=== PATIENT | female | born 1980 | race Caucasian/White ===

== ENCOUNTER → 2017-12-01 15:45 | Outpatient (REF) | payer OTHER, SELFPAY ==
[2017-12-01 17:51] LABS: Basophils % 0.4 % (0.1-2.0); Eosinophils # 0.2 K/mm3 (0.0-0.4); Eosinophils % 2.3 % (0.1-12.0); Hematocrit 45.2 % (37.0-47.0); Hemoglobin 14.6 g/dL (12.2-16.2); Lymphocytes # 2.2 K/mm3 (0.7-4.5); Lymphocytes % 32.6 K/mm3 (10-50); Mean Corpuscular HGB Conc 32.3 g/dL (31.8-35.4); Mean Corpuscular Volume 86.6 fl (81-99); Mean Platelet Volume 7.6 fl (7.4-10.4); Monocytes # 0.3 K/mm3 (0.1-1.0); Monocytes % 4.5 % (1.7-9.3); Neutrophils # 4.1 K/mm3 (1.8-7.8); Neutrophils % 60.2 % (37.0-80.0); Platelet Count 217 K/mm3 (142-424); Red Blood Count 5.21 M/mm3 (4.20-5.40); Red Cell Distribution Width 12.3 % (11.5-17.5); White Blood Count 6.8 K/mm3 (4.8-10.8)
[2017-12-01 18:13] LABS: Alanine Aminotransferase 57 U/L (12-78); Albumin Level 3.8 gm/dL (3.4-5.0); Alkaline Phosphatase 80 U/L (46-116); Anion Gap 12.1 mEq/L (5-15); Aspartate Amino Transferase 33 U/L (15-37); Bilirubin,Total 0.3 mg/dL (0.2-1.0); Blood Urea Nitrogen 7 mg/dL (7-18); Calcium 9.3 mg/dL (8.5-10.1); Carbon Dioxide 31 mmol/L (21.0-32.0); Chloride 103 mmol/L (98-107); Chol/HDL Ratio 6.7 (1-3.5); Cholesterol 148 mg/dL (140-200); Creatinine,Serum 0.87 mg/dL (0.55-1.02); Estimated Glomerular Filt Rate 73 ml/min (>60); GFR (African American) 89 ML/MIN (>60); Globulin 3.8 gm/dl (1.3-3.2); HDL Cholesterol 22 mg/dL (29-89); LDL Cholesterol 62 mg/dL (0-130); Potassium 4.1 mmoL/L (3.5-5.1); Sodium 142 mmol/L (136-145); Thyroid Stimulating Hormone 12.75 uIU/ml (0.358-3.740); Total Protein,Serum 7.6 gm/dL (6.4-8.2); Triglycerides 318 mg/dL (30-200); VLDL Cholesterol 64 mg/dL (0-40)
[2017-12-01 18:19] LABS: Glucose 92 mg/dL (74-106)
[2017-12-03 10:59] LABS: Vitamin D 25 Hydroxy 32.3 ng/mL (30.0-100.0)
== END ==
LOC: LAB 15:45
PROVIDERS: Visit Provider Nurse Practitioner Family
DX: R53.83 Other fatigue (principal); E07.9 Disorder of thyroid, unspecified; G56.01 Carpal tunnel syndrome, right upper limb
CPT/HCPCS: 80053; 80061; 82652; 84436; 84443; 85025

== ENCOUNTER 2019-10-31 16:43 | Emergency (ER) | payer BC, SELFPAY ==
[2019-10-31 17:02] VITALS: BP 109/75; PULSE 70; RESP 20; TEMP 36.7; O2SAT 98; BMI 18.8
[2019-10-31 17:14] LABS: UTC Strep Screen (Rapid) Negative (Negative)
--- NOTE | 2019-10-31 17:26 | HMH.EDUTC ---
[facility] [place]ression: Bronchitis Disposition: Home, Self-Care Condition on Discharge: Good Instructions: DI for Acute Bronchitis, Preventing the Spread of Coronavirus Discharge Instructions Additional Instructions: Drink plenty of fluids. Take tylenol or ibuprofen for pain or fever. Take the medications as directed. Follow up with your regular doctor. GO TO THE ER FOR ANY WORSENING SYMPTOMS FOLLOW THE DIRECTIONS ON THE COVID-19 HAND OUT THAT WE GAVE YOU REGARDING SELF-ISOLATION UNTIL YOU KNOW YOUR COVID-19 RESULTS Prescriptions: methylPREDNISolone [Medrol] 4 mg PO DIRECTED 6 Days #21 tab.ds.pk Transmission Status: Sent to [facility] Benzonatate [Tessalon Perle 100mg Cap] 100 mg PO TIDP PRN #30 cap PRN Reason: Cough Transmission Status: Sent to [facility] Azithromycin [Z-Jordan 250mg Tab*] 250 mg PO UD DOSE PK #6 tab Transmission Status: Sent to [facility] Referrals: Jordy Haddad MD [Primary Care Provider] - Forms: Work/School Release Time of Disposition: 17:29 Medical Decision Making - Medical Records Medical records reviewed: No: I reviewed the patient's medical records. - Jean Pierre Inquiry Pt receiving controlled substance: No Vital Signs: 10/31/19 17:02 Temperature 98.0 F Temperature Source Oral Pulse Rate [Right Brachial] 70 Respiratory Rate 20 Blood Pressure [Right Arm] 109/75 L Blood Pressure Mean [Right Arm] 86 Blood Pressure Source [Right Arm] Automatic Cuff Blood Pressure Position [Right Arm] Sitting 02 Sat by Pulse Oximetry 98 Oxygen Delivery Method Room Air - Lab Data Lab Results 10/31/19 17:10: Strep [facility] Negative Orders (Tests/Meds): ORDERS Category Date Time Status SARS-CoV-2, DANGELO Stat Lab 10/31/19 17:05 Received Strep Screen Confirmation Stat Micro 10/31/19 17:10 [place] [facility] [place] - General Stated complaint: Cough, needs COVID test for work Time Seen by Provider: 10/31/19 17:10 Mode of Arrival: Ambulatory Source of Information: Patient Limitations: No Limitations Description of Symptoms (Recalled from Triage Doc. by RN): PATIENT C/O PRODUCTIVE COUGH, SORE THROAT, HEADACHE, AND FEVER X 1 WEEK. STATES HER EMPLOYER IS REQUESTING A COVID TEST BEFORE SHE RETURNS TO WORK. PATIENT WORKS AT [employer] AND STATES A RESIDENT AT THE FACILITY RECENTLY TESTED POSITIVE HEENT Symptoms (Recalled from RN notes): Yes Resp Symptoms (Recalled from RN notes): Yes Skin Symptoms (Recalled from RN notes): No MS Symptoms (Recalled from RN notes): No Functional Status (Recalled from RN notes): WNL - History of Present Illness Provider Complaint: She has had a cough for the past 2 days. She believes it is related to allergies because she has been cleaning out a barn with lots of dust. But, she works at [employer] home. There has been one positive COVID-19 case there in a resident. - Related Data Previous Rx's Medication Instructions Recorded Azithromycin [Z-Jordan 250mg Tab*] 250 mg PO UD DOSE PK #6 tab 10/31/19 Benzonatate [Tessalon Perle 100mg 100 mg PO TIDP PRN #30 cap 10/31/19 Cap] methylPREDNISolone [Medrol] 4 mg PO DIRECTED 6 Days #21 10/31/19 tab.ds.pk Allergies Allergy/AdvReac Type Severity Reaction Status Date / Time latex [LATEX] Allergy Severe RASH, Verified 06/18/19 14:03 REDNESS Penicillins [PENICILLINS] Allergy Severe SWELLING, Verified 06/18/19 14:03 TROUBLE BREATHING - Worker's Comp Is this a Worker's Comp case?: No [facility] History - Hepatitis A Screen Drug use history?: No High risk sexual behaviors?: No History of sexually transmitted infection?: No Currently employed?: No Childcare worker?: No Do you have indoor plumbing?: Yes Do you have electricity?: Yes Attestation statement:: This patient has been screened for Hepatitis A risk factors. I have reviewed the patient's past medical history: Yes Medical History: Reports:: Anxiety, Asthma, Depre
[2019-10-31 17:35] VITALS: BP 109/75; PULSE 70; RESP 20; TEMP 36.7; O2SAT 98
[2019-11-02 15:21] LABS: Covid-19 Nasal PCR Sendout Lex NOT DETECTED
== END 2019-10-31 17:40 | disposition home or self-care (01) ==
PROVIDERS: Emergency Provider Nurse Practitioner Family; PCP Emergency Medicine
DX: J20.9 Acute bronchitis, unspecified (principal); Z20.828 Contact with and (suspected) exposure to other viral communicable diseases
CPT/HCPCS: 87880; 99202; U0004

== ENCOUNTER 2020-08-20 14:54 | Emergency (ER) | payer BC, SELFPAY ==
[2020-08-20 16:05] VITALS: BP 102/68; PULSE 102; RESP 19; TEMP 36.8; O2SAT 98; BMI 21.9
[2020-08-20 16:15] VITALS: BP 102/68; PULSE 102; RESP 19; TEMP 36.8; O2SAT 98
--- NOTE | 2020-08-20 16:18 | HMH.EDUTC ---
[facility] [place] Clinical Impression: Nausea and vomiting Qualifiers: Vomiting type: unspecified Vomiting Intractability: unspecified Qualified Code(s): R11.2 - Nausea with vomiting, unspecified Disposition: Home, Self-Care Condition on Discharge: Good Instructions: Nausea and Vomiting-Adult, Ondansetron Additional Instructions: Drink extra fluids with and between meals. If you have difficulty drinking, try very small amounts of water or suck on ice chips. ? Avoid fruit juices, as these do not replace minerals and can actually increase diarrhea. ? Children and adults can use sports drinks to replenish electrolytes. Younger children and infants should use products formulated for children, like oral rehydration solutions. ? Eat food in small amounts and let your stomach recover. ? Get lots of rest. You may feel tired or weak. ? No greasy or fried foods for the next 24-48 hours BRAT diet Bananas Rice Apples and Stevenson ? Make sure to drink plenty of liquids ? Return if needed ? Straight to ER if any life threatening symptoms ? Zofran as prescribed ? Follow up with family doctor in the next 48-72 hours if no improvement or any worsening of symptoms Prescriptions: Ondansetron [Zofran 4mg ODT] 4 mg PO TIDP PRN #9 tab PRN Reason: Vomiting Prescription Printed Referrals: Jordy Haddad MD [Primary Care Provider] - As needed Forms: Work/School Release Time of Disposition: 16:23 Medical Decision Making - Jean Pierre Inquiry Pt receiving controlled substance: No Jean Pierre was queried for this patient: No Vital Signs: 08/20/20 16:05 08/20/20 16:15 Temperature 98.3 F 98.3 F Temperature Source Oral Pulse Rate 102 H Pulse Rate [Left] 102 H Respiratory Rate 19 19 Blood Pressure 102/68 L Blood Pressure [Right Arm] 102/68 L Blood Pressure Mean [Right Arm] 79 Blood Pressure Source [Right Arm] Automatic Cuff Blood Pressure Position [Right Arm] Sitting 02 Sat by Pulse Oximetry 98 Oxygen Delivery Method Room Air - Lab Data Lab results reviewed: Yes: I reviewed the patient's lab results. [facility] [place] - General Stated complaint: vomiting,cough Time Seen by Provider: 08/20/20 16:18 Mode of Arrival: Ambulatory Source of Information: Patient Limitations: No Limitations HEENT Symptoms (Recalled from RN notes): No Resp Symptoms (Recalled from RN notes): No Skin Symptoms (Recalled from RN notes): No MS Symptoms (Recalled from RN notes): No Functional Status (Recalled from RN notes): wnl - History of Present Illness Provider Complaint: Patient states that she has had cough on and off for week and saw PCP for it last week State that she woke up in the middle of the night having nausea and vomiting State that several people at her work has had a stomach bug State that she was up most of the night vomiting and still had some vomiting this morning so she didnt go to work States that last episode of vomiting was about 4 hours ago but still having some nausea States that son also had strep throat last week and wants to get checked for it - Related Data Previous Rx's Medication Instructions Recorded Azithromycin [Z-Jordan 250mg Tab*] 250 mg PO UD DOSE PK #6 tab 10/31/19 Benzonatate [Tessalon Perle 100mg 100 mg PO TIDP PRN #30 cap 10/31/19 Cap] methylPREDNISolone [Medrol] 4 mg PO DIRECTED 6 Days #21 10/31/19 tab.ds.pk Ondansetron [Zofran 4mg ODT] 4 mg PO TIDP PRN #9 tab 08/20/20 Allergies Allergy/AdvReac Type Severity Reaction Status Date / Time latex [LATEX] Allergy Severe RASH, Verified 08/20/20 16:14 REDNESS Penicillins [PENICILLINS] Allergy Severe SWELLING, Verified 08/20/20 16:14 TROUBLE BREATHING - Worker's Comp Is this a Worker's Comp case?: No [facility] History - Hepatitis A Screen Drug use history?: No High risk sexual behaviors?: No History of sexually transmitted infection?: No Currently employed?: No Childcare worker?: No Do you have indoor plumbing?: Yes Do you have el
[2020-08-20 22:55] LABS: UTC Strep Screen (Rapid) Negative (Negative)
== END 2020-08-20 16:33 | disposition home or self-care (01) ==
PROVIDERS: Emergency Provider Nurse Practitioner; PCP Emergency Medicine
DX: R11.2 Nausea with vomiting, unspecified (principal); F41.8 Other specified anxiety disorders; K21.9 Gastro-esophageal reflux disease without esophagitis; J45.909 Unspecified asthma, uncomplicated; Z88.0 Allergy status to penicillin
CPT/HCPCS: 87880; 99202; G0463

== ENCOUNTER → 2020-11-16 19:53 | Outpatient (CLI) | payer BC, SELFPAY | PROVIDERS: Visit Provider Nurse Practitioner Family | DX: Z20.822 Contact with and (suspected) exposure to COVID-19 (principal) | CPT/HCPCS: U0003 ==

== ENCOUNTER 2020-11-28 14:37 | Emergency (ER) | payer BC, SELFPAY ==
[2020-11-28 15:15] VITALS: BP 100/65; PULSE 84; RESP 19; TEMP 36.9; O2SAT 99; BMI 19.5
--- NOTE | 2020-11-28 16:15 | HMH.EDUTC ---
[facility] [place] Disposition Clinical Impression: Exposure to COVID-19 virus Disposition: Home, Self-Care Condition on Discharge: Good Instructions: DI for COVID-19 (Suspected or Confirmed ), Coronavirus Disease 2019, Preventing the Spread of Coronavirus Discharge Instructions Additional Instructions: *Monitor Temp, Over the counter Motrin or Tylenol as directed/as needed Tylenol every 4 hours and Motrin every 6 hours (as long as your family doctor has told you that you can take it) for fever or pain. and straight to ER if unable to lower temp less than 101.0 after medication given Follow up IMMEDIATELY for new or worsening symptoms or no Noticeable improvement over the next 48-72 hours. 911 for difficulty breathing or swallowing You were tested for today for COVID19 your test result should be back in the next 24-48 hours, you may call to the [facility] to see if your test results are back in the next 48 hours [phone] [facility] hours are 9am-9pm You was given a handout with instructions for Self Quarantine and Self isolation for while you wait on test results and what to do if they are positive If you are positive the Health Dept will be contacting you also Make sure to take your Vitamins Vit. C Vit D and Zinc if you can take them Referrals: Jordy Haddad MD [Primary Care Provider] - As needed Forms: Work/School Release Time of Disposition: 16:16 Medical Decision Making - Jean Pierre Inquiry Pt receiving controlled substance: No Jean Pierre was queried for this patient: No Vital Signs: 11/28/20 15:15 Temperature 98.4 F Temperature Source Oral Pulse Rate [Right Brachial] 84 Respiratory Rate 19 Blood Pressure [Right Arm] 100/65 L Blood Pressure Mean [Right Arm] 76 Blood Pressure Source [Right Arm] Automatic Cuff Blood Pressure Position [Right Arm] Sitting 02 Sat by Pulse Oximetry 99 Oxygen Delivery Method Room Air Orders (Tests/Meds): ORDERS Category Date Time Status Covid-19 Nasal PCR ([facility]) Routine Lab 11/28/20 15:26 Received [facility] [place] HPI - General Stated complaint: covid test exposure Time Seen by Provider: 11/28/20 16:15 Mode of Arrival: Ambulatory Source of Information: Patient Limitations: No Limitations Description of Symptoms (Recalled from Triage Doc. by RN): COVID TEST D/T EXPOSURE. 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 - Related Data Previous Rx's Medication Instructions Recorded albuterol sulfate 90 mcg/actuation 2 puff INHALATION Q6H PRN #6.7 g 11/16/20 aerosol inhaler benzonatate 200 mg capsule 200 mg PO TID PRN 7 Days #21 cap 11/16/20 ondansetron 4 mg disintegrating 4 mg PO Q6H PRN 7 Days #30 tab 11/16/20 tablet prednisone 20 mg tablet 20 mg PO BID 5 Days #10 tab 11/16/20 Allergies Allergy/AdvReac Type Severity Reaction Status Date / Time latex [LATEX] Allergy Severe RASH, Verified 11/16/20 11:44 REDNESS Penicillins [PENICILLINS] Allergy Severe SWELLING, Verified 11/16/20 11:44 TROUBLE BREATHING - Worker's Comp Is this a Worker's Comp case?: No [facility] History - Hepatitis A Screen Drug use history?: No High risk sexual behaviors?: No History of sexually transmitted infection?: No Currently employed?: No Childcare worker?: No Do you have indoor plumbing?: Yes Do you have electricity?: Yes Attestation statement:: This patient has been screened for Hepatitis A risk factors. I have reviewed the patient's past medical history: Yes Medical History: Reports:: Anxiety, Asthma, Depression, Gastroesophageal Reflux Dise
[2020-11-28 16:20] VITALS: BP 100/65; PULSE 84; RESP 19; TEMP 36.9; O2SAT 99
[2020-11-28 20:56] LABS: UTC Strep Screen (Rapid) Negative (Negative)
--- NOTE | 2020-11-29 09:35 | PC.NURSE ---
pt notified with positive results for covid-19
== END 2020-11-28 16:26 | disposition home or self-care (01) ==
PROVIDERS: Emergency Provider Nurse Practitioner; PCP Emergency Medicine
DX: U07.1 COVID-19 (principal); F41.8 Other specified anxiety disorders; K21.9 Gastro-esophageal reflux disease without esophagitis; E03.9 Hypothyroidism, unspecified; Z91.040 Latex allergy status; F17.210 Nicotine dependence, cigarettes, uncomplicated; Z88.0 Allergy status to penicillin
CPT/HCPCS: 87880; 99202; G0463; U0003

== ENCOUNTER → 2021-01-01 07:50 | Outpatient (CLI) | payer BC, SELFPAY ==
--- NOTE | 2021-01-01 07:52 | CA_ITS ---
APPROVED REPORT EXAM: Comprehensive 2D, Doppler, and color-flow Echocardiogram [employer] Chair: Lesley Bowie CRT Ht: 5 ft 6 in Wt: 120lbs BSA: 1.61 BP: 000/00 mmHg Indications: cp, gerd, chf, abn ekg 2D Dimensions LVOT 1.73 cm (M/F) 1.5-2.5 LA Volume 26.20 mL LA Volume Index 16.30 mL/m2 (M/F) 16-34 M-Mode Dimensions RVDd 1.97 cm (0.9-2.6) LA Diam 2.62 cm (1.9-4.0) LVDd 4.34 cm (3.5-5.7) Ao Diam 3.12 cm (2.0-3.7) LVDs 2.90 cm (3.5-5.7) IVSd 1.13 cm (0.6-1.1) PWd 0.70 cm (0.6-1.1) EF (Teich) 62.10% FS 33.20% EDV (Teich) 84.90 mL TAPSE 1.29 (<1.7) ESV (Teich) 32.20 mL LV Diastology E Decel Time 193.00 (160-240 msec) E/A Ratio 0.99 MED E' 11.20 (< 7 cm/sec) MED A' 7.60 cm/s E'/MED E' Ratio 4.43 (>14) LAT E' 14.50 (<10 cm/sec) LAT A' 7.90 cm/s E/LAT E' Ratio 3.42 (>14) Aortic Valve AO Peak GR. 5.70 mmHg Mitral Valve MV A Velocity 50.00 (40-130 cm/s) E/A Ratio 0.99 MV Decel. Time 193.00 (160-240 ms) Pulmonary Valve PV Peak Velocity 72.00 (50-150 cm/s) Tricuspid Valve TR P. Velocity 262.00 cm/s RAP Estimate 10.00 mmHg RVSP 37.60 mmHg Left Ventricle Left atrium is normal size, left ventricle is normal size, there is no concentric left ventricular hypertrophy, visually estimated ejection fraction 55% with no regional wall motion abnormality, diastolic parameters are within normal range. Right Ventricle Right atrium and right ventricle are normal size and contractility. Aortic Valve Aortic valve is grossly normal, there is no aortic stenosis or aortic insufficiency. Mitral Valve Mitral valve is grossly normal, there is trace mitral regurgitation. Tricuspid Valve Tricuspid valve grossly normal, there is trace tricuspid regurgitation, calculated right ventricular systolic pressure is within normal range. Pulmonic Valve Pulmonic valve is poorly visualized. Great Vessels Aortic root is normal size. Inferior vena cava is normal size with normal inspiratory collapse. Pericardium No significant pericardial effusion noted. Conclusion 1. Normal left ventricular size, preserved left ventricular systolic function, visually estimated ejection fraction 55% with no regional wall motion abnormality, diastolic parameters are within normal range. 2. Trace mitral and tricuspid regurgitation, calculated right ventricular systolic pressure within normal range. 3. No significant pericardial effusion noted. Electronically signed by : Erasto Hart MD 01/01/2021 20:31:07
--- NOTE | 2021-01-01 07:52 | CA_ITS ---
APPROVED REPORT Exam: Exercise Treadmill Technologist: Gaby Elizabeth, Ht: 5 ft 6 in Wt: 120 lbs BSA: 1.61 m2 HR: 63 bpm BP: 122/71 mmHg Medical History Medications: Albuterol,,,,, ONdansetron,,,,, Stress Test Details Test: Jerson HR Resting HR: 71 bpm Max Heart Rate (APMHR): 180.840806 bpm Max HR Achieved: 159 bpm Target HR (85% APMHR): 153.506274 bpm % of APMHR: 88.33 Recovery HR: 81 bpm BP Resting BP: 127/84 mmHg Max BP: 142/74 mmHg Recovery BP: 133.0/69.0 mmHg ECG Clinical Exercise duration: 11:24 min Highest Stage Achieved: Exercise capacity: 12.8 METs Stress ECG Conclusion Max HR 159 Test stopped due to: Knee pain Symptoms: SOA with peak exertion, knee pain. No CP. Arrhythmias/Ectopy: None ST-T Changes: <1.[address] segment changes. Test Summary REST . . . . . . . Sitting REST . . . . . . . Standing REST 06:49 0.0 0.0 71 . 127/ 84 . . Stage 1 01:00 10.0 1.7 93 . . . . Stage 1 02:00 10.0 1.7 94 . . . . Stage 1 03:00 10.0 1.7 94 . 120/ 84 . . Stage 2 01:00 12.0 2.5 106 . . . . Stage 2 02:00 12.0 2.5 108 . . . . Stage 2 03:00 12.0 2.5 109 . 124/ 88 . . Stage 3 01:00 14.0 3.4 117 . . . . Stage 3 02:00 14.0 3.4 119 . . . . Stage 3 03:00 14.0 3.4 122 . 132/ 88 . . Stage 4 01:00 16.0 4.2 137 . . . . Stage 4 02:00 16.0 4.2 149 . . . . Stage 4 02:24 16.0 4.2 155 . . . Stop exercise at 11:24 RECOVERY 01:00 0.0 0.0 115 . . . . RECOVERY 02:00 0.0 0.0 100 . . . . RECOVERY 03:00 0.0 0.0 87 . 142/ 74 . . RECOVERY 04:00 0.0 0.0 80 . 133/ 69 . . RECOVERY 04:30 0.0 0.0 96 . 133/ 69 . . Electronically signed by : Angel Davis MD 01/02/2021 17:36:52
== END ==
PROVIDERS: PCP Nurse Practitioner Family; Visit Provider Nurse Practitioner Family
DX: R07.9 Chest pain, unspecified (principal)
CPT/HCPCS: 93017; 93306

== ENCOUNTER → 2021-01-31 06:32 | Outpatient (CLI) | payer BC, SELFPAY ==
--- NOTE | 2021-01-31 06:33 | CT_ITS ---
PROCEDURE: CT ANGIO CORONARY ARTERY CLINCAL INDICATION: chest pain COMPARISON: CT CHW CT CHEST W/ CONTRAST from 12/21/2015 TECHNIQUE: IV Contrast: 80 mL Isovue 370 Gated images performed with helical technique of the coronary arteries. Axial, 3D and curved planar reformatting and spindle reformatted images were reviewed. FINDINGS: The coronary arteries have an unremarkable appearance. There are origins from the aorta are normal with no malignant course apparent. The left main, lad and diagonal branches are unremarkable. Circumflex and obtuse marginal branch has an unremarkable appearance. The RCA has an unremarkable appearance. RCA gives rise to the posterior lateral branch to the left ventricle supply to the intraventricular says some is through the LAD. The No myocardial bridging. Coronary artery calcium score is 0. There are atelectatic changes or fibrotic changes in the left lower lobe. The RV/LV ratio is greater than 1 with mild prominence of the right ventricle and reflux of contrast into prominent inferior vena cava which may be seen with right heart strain IMPRESSION: 1. Negative CTA of the coronary arteries. 2. Left-sided dominance to the interventricular septum. 3. Possible right dysfunction/strain Dictated by: Jair Dye MD 02/02/2021 14:19 Jair Dey MD in [place] 02/02/2021 14:19
[2021-01-31 06:50] VITALS: BMI 17.2
[2021-01-31 07:07] VITALS: BP 116/66; PULSE 78; RESP 18; TEMP 36.2; O2SAT 97
== END ==
PROVIDERS: PCP Family Medicine; Visit Provider Nurse Practitioner Family
DX: R06.00 Dyspnea, unspecified (principal); R07.9 Chest pain, unspecified; F17.200 Nicotine dependence, unspecified, uncomplicated; Z82.49 Family history of ischemic heart disease and other diseases of the circulatory system
CPT/HCPCS: 75574; Q9967

== ENCOUNTER → 2021-02-09 16:36 | Outpatient (CLI) | payer BC, SELFPAY ==
--- NOTE | 2021-02-09 16:40 | XR_ITS ---
PROCEDURE INFORMATION: Exam: XR Right Shoulder Exam date and time: 02/09/2021 4:40 PM Age: 40 years old Clinical indication: Injury or trauma; Blunt trauma (contusions or hematomas); Right; Injury date: 02/02/21; Injury details: Shoulder pain after falling from horse 1 week ago TECHNIQUE: Imaging protocol: XR Right shoulder. Views: 2 or more views. COMPARISON: CR CXR CHEST(2 VIEWS-NOT PORTABLE) 03/25/2016 3:05 PM FINDINGS: Bones/joints: There is no evidence of acute fracture.There is no evidence of malalignment or dislocation. Soft tissues: Normal. IMPRESSION: There is no evidence of acute fracture.There is no evidence of malalignment or dislocation.
--- NOTE | 2021-02-09 16:40 | XR_ITS ---
PROCEDURE INFORMATION: Exam: XR Thoracic Spine Exam date and time: 02/09/2021 4:40 PM Age: 40 years old Clinical indication: Injury or trauma; Blunt trauma (contusions or hematomas); Injury date: 02/02/21; Injury details: Upper back pain after fall from horse 1 week ago TECHNIQUE: Imaging protocol: XR of the thoracic spine. Views: 3 views. COMPARISON: CR TSP THORACIC SPINE-3V SWIMMERS 06/14/2014 10:33 AM FINDINGS: Bones/joints: Normal. No acute fracture. Normal alignment. Soft tissues: Unremarkable. IMPRESSION: No acute findings.
== END ==
PROVIDERS: PCP Emergency Medicine; Visit Provider Nurse Practitioner Family
DX: M25.511 Pain in right shoulder (principal); M54.9 Dorsalgia, unspecified; M54.6 Pain in thoracic spine
CPT/HCPCS: 72072; 73030

== ENCOUNTER → 2021-02-23 20:00 | Outpatient (CLI) | payer BC, SELFPAY | PROVIDERS: Visit Provider Nurse Practitioner Family | DX: Z20.822 Contact with and (suspected) exposure to COVID-19 (principal) | CPT/HCPCS: C9803; U0003; U0005 ==

== ENCOUNTER → 2021-04-13 18:18 | Outpatient (CLI) | payer BC, SELFPAY ==
[2021-04-13 18:20] LABS: Adenovirus,PCR Not Detected (NotDetected); Bordetella Pertussis Not Detected (NotDetected); Chlamydophila Pneumoniae, PCR Not Detected (NotDetected); Coronavirus 19, PCR Not Detected (NotDetected); Coronavirus 229E Not Detected (NotDetected); Coronavirus NL63 Not Detected (NotDetected); Coronavirus OC43 Not Detected (NotDetected); Coronovirus HKU1,PCR Not Detected (NotDetected); Human Metapneumovirus Not Detected (NotDetected); Influenza A, PCR Not Detected (NotDetected); Influenza AH1, 2009 Not Detected (NotDetected); Influenza AH1, PCR Not Detected (NotDetected); Influenza AH3,PCR Not Detected (NotDetected); Influenza B, PCR Not Detected (NotDetected); Mycoplasma Pneumoniae, PCR Not Detected (NotDetected); Parainfluenza 1, PCR Not Detected (NotDetected); Parainfluenza 2, PCR Not Detected (NotDetected); Parainfluenza 3, PCR Not Detected (NotDetected); Parainfluenza 4, PCR Not Detected (NotDetected); Respiratory Syncytial Virus Not Detected (NotDetected); Rhinovirus/Enterovirus Not Detected (NotDetected)
== END ==
PROVIDERS: Visit Provider Nurse Practitioner Family
DX: Z20.822 Contact with and (suspected) exposure to COVID-19 (principal)
CPT/HCPCS: 87581; 87632; 87798; C9803; U0003; U0005

== ENCOUNTER → 2021-08-22 13:32 | Outpatient (CLI) | payer BC, SELFPAY ==
--- NOTE | 2021-08-22 13:36 | XR_ITS ---
FINAL REPORT CLINICAL HISTORY: cough COMPARISON: March 25, 2016 FINDINGS: Two views of the chest were obtained. The heart size and pulmonary vascularity are within normal limits. The mediastinum is normal. No acute pulmonary abnormality is identified. There is no pneumothorax. The bony thorax is intact. IMPRESSION: No active cardiopulmonary disease. Reviewed, Interpreted and Dictated by Elver Roblero III, MD Transcribed by Nataly Rust Authenticated by Elver Roblero III, MD on 08/22/2021 02:17:18 PM [facility]
== END ==
PROVIDERS: PCP Nurse Practitioner Family; Visit Provider Nurse Practitioner Family
DX: R06.2 Wheezing (principal)
CPT/HCPCS: 71046

== ENCOUNTER → 2021-11-09 15:27 | Outpatient (CLI) | payer BC, SELFPAY ==
[2021-11-09 17:23] LABS: Basophils % 0.9 % (0.1-2.0); Eosinophils # 0.1 K/mm3 (0.0-0.4); Eosinophils % 2.1 % (0.1-12.0); Hematocrit 42.3 % (37.0-47.0); Hemoglobin 14.1 g/dL (12.2-16.2); Lymphocytes # 1.2 K/mm3 (0.7-4.5); Lymphocytes % 27.2 % (10-50); Mean Corpuscular HGB Conc 33.3 g/dL (31.8-35.4); Mean Corpuscular Hemoglobin 30.1 pg (27.0-31.2); Mean Corpuscular Volume 90.2 fl (81-99); Monocytes # 0.4 K/mm3 (0.1-1.0); Neutrophils # 2.7 K/mm3 (1.8-7.8); Neutrophils % 60.7 % (37.0-80.0); Platelet Count 199 K/mm3 (142-424); Red Blood Count 4.69 M/mm3 (4.20-5.40); Red Cell Distribution Width 13.2 % (11.5-17.5); White Blood Count 4.4 K/mm3 (4.8-10.8)
[2021-11-09 17:42] LABS: Alanine Aminotransferase 50 U/L (12-78); Albumin/Globulin Ratio 1.2 (1.1-1.8); Alkaline Phosphatase 70 U/L (38-126); Anion Gap 9.7 mEq/L (5-15); Aspartate Amino Transferase 45 U/L (14-36); Bilirubin,Total 0.3 mg/dl (0.2-1.3); Blood Urea Nitrogen 9 mg/dl (7-17); Calcium 8.8 mg/dl (8.4-10.2); Carbon Dioxide 25 mmol/L (22.0-30.0); Chloride 105 mmol/L (98-107); Chol/HDL Ratio 4.7 (1-3.5); Cholesterol 159 mg/dl (140-200); Estimated Glomerular Filt Rate 79 ml/min (>60); GFR (African American) 96 ML/MIN (>60); Globulin 3.4 g/dL (1.3-3.2); Glucose 89 mg/dl (74-100); HDL Cholesterol 34 mg/dl (40-60); Potassium 3.7 mmoL/L (3.5-5.1); Sodium 136 mmol/L (136-145); Total Protein,Serum 7.4 g/dl (6.3-8.2); Triglycerides 102 mg/dl (30-150); VLDL Cholesterol 20 mg/dL (0-40)
[2021-11-09 17:54] LABS: Direct LDL Cholesterol 94.09 mg/dL (100-129)
[2021-11-09 17:57] LABS: Free T4 (Free Thyroxine) 0.81 ng/dl (0.78-2.19)
[2021-11-17 17:08] LABS: 1,25 Dihydroxy Vitamin D 37 pg/mL (.); 1,25-Dihydroxy, Vitamin D-2 <10 pg/mL (.); 1,25-Dihydroxy, Vitamin D-3 37 pg/mL (.)
== END ==
PROVIDERS: PCP Nurse Practitioner Family; Visit Provider Nurse Practitioner Family
DX: R53.83 Other fatigue (principal)
CPT/HCPCS: 36415; 80053; 80061; 82652; 84439; 84443; 85025

== ENCOUNTER 2021-11-11 13:26 | Emergency (ER) | payer BC, SELFPAY ==
[2021-11-11 13:38] VITALS: BP 112/77; PULSE 82; RESP 16; TEMP 36.8; O2SAT 97; BMI 24.3
--- NOTE | 2021-11-11 14:05 | HMH.EDUTC ---
[facility] [place] Clinical Impression: Acute bronchitis Qualifiers: Bronchitis organism: unspecified organism Qualified Code(s): J20.9 - Acute bronchitis, unspecified Disposition: Home, Self-Care Condition on Discharge: Good Instructions: DI for Acute Bronchitis, DI for COVID-19 (Suspected or Confirmed ), Preventing the Spread of Coronavirus Discharge Instructions Additional Instructions: Drink plenty of fluids. Take tylenol or ibuprofen for pain or fever. Take the medications as directed. Follow up with your regular doctor. GO TO THE ER FOR ANY WORSENING SYMPTOMS Quarantine until you know the results of your covid-19 test. Notify your school or workplace of your results and follow their instructions regarding return to work/school. Prescriptions: Benzonatate [Benzonatate 100mg cap] 100 mg PO TIDP PRN #30 cap PRN Reason: Cough [id number] methylPREDNISolone [Medrol] 4 mg PO DIRECTED 6 Days #21 packet Transmission Status: [facility] Azithromycin [Z-Jordan 250mg Tab*] 250 mg PO UD DOSE PK #6 tab Transmission Status: [facility] Referrals: Rian Rose APRN [Primary Care Provider] - Forms: Work/School Release Time of Disposition: 14:12 Medical Decision Making - Medical Records Medical records reviewed: No: I reviewed the patient's medical records. - Jean Pierre Inquiry Pt receiving controlled substance: No Vital Signs: 11/11/21 13:38 11/11/21 14:14 Temperature 98.3 F 98.3 F Temperature Source Oral Pulse Rate 82 Pulse Rate [Left] 82 Respiratory Rate 16 16 Blood Pressure 112/77 Blood Pressure [Right Arm] 112/77 Blood Pressure Mean [Right Arm] 88 02 Sat by Pulse Oximetry 97 - Lab Data Lab Results 11/11/21 14:06: Chlamy pneumoniae PCR Not detected, Adenovirus (PCR) Not detected, B. pertussis DNA (PCR) Not detected, Coronavirus OC43 (PCR) Not detected, Coronavirus HKU1 (PCR) Not detected, Coronavirus 229E (PCR) Not detected, SARS-CoV-2 (PCR) Not detected, Coronavirus NL63 (PCR) Not detected, Human Metapneumovir PCR Not detected, Influenza A (H1) PCR Not detected, Influ A (H1N1/09) PCR Not detected, Influenza A (H3) PCR Not detected, Influenza Type A (PCR) Not detected, Influenza Type B (PCR) Not detected, M. pneumoniae (PCR) Not detected, Parainfluenza 1 (PCR) Not detected, Parainfluenza 2 (PCR) Not detected, Parainfluenza 3 (PCR) Not detected, Parainfluenza 4 (PCR) Detected A, RSV (PCR) Not detected, Entero/Rhino (PCR) Not detected [facility] [place] - General Stated complaint: sore throat, runny nose, cough, congestion Time Seen by Provider: 11/11/21 14:05 Mode of Arrival: Ambulatory Source of Information: Patient Limitations: No Limitations Description of Symptoms (Recalled from Triage Doc. by RN): patient comes in today with complaints of cough and sore throat. symptoms began yesterday HEENT Symptoms (Recalled from RN notes): Yes Resp Symptoms (Recalled from RN notes): Yes Skin Symptoms (Recalled from RN notes): No MS Symptoms (Recalled from RN notes): No Functional Status (Recalled from RN notes): n/a - History of Present Illness Provider Complaint: She states that she has had chest congestion, productive cough with yellowish sputum and she has felt bad since yesterday. - Related Data Home Medications Medication Instructions Recorded Confirmed gabapentin 600 mg tablet 600 mg PO BID 01/03/21 11/09/21 Buspirone HCl [Buspar 10mg 10 mg PO BID 01/31/21 11/09/21 tablet] Previous Rx's Medication Instructions Recorded albuterol sulfate 90 mcg/actuation 2 puff INHALATION Q6H PRN 30 Days 08/21/21 aerosol inhaler #6.7 g Azithromycin [Z-Jordan 250mg Tab*] 250 mg PO UD DOSE PK #6 tab 11/11/21 Benzonatate [Benzonatate 100mg 100 mg PO TIDP PRN #30 cap 11/11/21 cap] methylPREDNISolone [Medrol] 4 mg PO DIRECTED 6 Days #21 11/11/21 packet Allergies Allergy/AdvReac T
[2021-11-11 14:14] VITALS: BP 112/77; PULSE 82; RESP 16; TEMP 36.8
[2021-11-11 14:32] LABS: Adenovirus,PCR Not Detected (NotDetected); Bordetella Pertussis Not Detected (NotDetected); Chlamydophila Pneumoniae, PCR Not Detected (NotDetected); Coronavirus 19, PCR Not Detected (NotDetected); Coronavirus 229E Not Detected (NotDetected); Coronavirus NL63 Not Detected (NotDetected); Coronavirus OC43 Not Detected (NotDetected); Coronovirus HKU1,PCR Not Detected (NotDetected); Human Metapneumovirus Not Detected (NotDetected); Influenza A, PCR Not Detected (NotDetected); Influenza AH1, 2009 Not Detected (NotDetected); Influenza AH1, PCR Not Detected (NotDetected); Influenza AH3,PCR Not Detected (NotDetected); Influenza B, PCR Not Detected (NotDetected); Mycoplasma Pneumoniae, PCR Not Detected (NotDetected); Parainfluenza 1, PCR Not Detected (NotDetected); Parainfluenza 2, PCR Not Detected (NotDetected); Parainfluenza 3, PCR Not Detected (NotDetected); Respiratory Syncytial Virus Not Detected (NotDetected); Rhinovirus/Enterovirus Not Detected (NotDetected)
[2021-11-11 19:21] LABS: Parainfluenza 4, PCR Detected (NotDetected)
== END 2021-11-11 14:16 | disposition home or self-care (01) ==
PROVIDERS: Emergency Provider Nurse Practitioner Family; PCP Nurse Practitioner Family
DX: J20.9 Acute bronchitis, unspecified (principal)
CPT/HCPCS: 87581; 87632; 87798; 99212; C9803; G0463; U0003; U0005

== ENCOUNTER 2021-12-02 13:32 | Emergency (ER) | payer BC, SELFPAY ==
[2021-12-02 14:30] VITALS: BP 103/72; PULSE 76; RESP 19; TEMP 37; O2SAT 100; BMI 23.9
--- NOTE | 2021-12-02 14:58 | HMH.EDUTC ---
[facility] [place] Clinical Impression: Encounter for laboratory testing for COVID-19 virus Disposition: Home, Self-Care Condition on Discharge: Good Instructions: DI for COVID-19 (Suspected or Confirmed ), Preventing the Spread of Coronavirus Discharge Instructions Additional Instructions: *Monitor Temp, Over the counter Motrin or Tylenol as directed/as needed Tylenol every 4 hours and Motrin every 6 hours (as long as your family doctor has told you that you can take it) for fever or pain. and straight to ER if unable to lower temp less than 101.0 after medication given *Warm salt water gargles may help to soothe the throat *Throat Lozenges *Warm fluids like tea with honey may help to soothe the throat *Sleep elevated *Humidifier/Vaporizer Follow up IMMEDIATELY for new or worsening symptoms or no Noticeable improvement over the next 48-72 hours. 911 for difficulty breathing or swallowing You were tested for today for COVID19 your test result should be back in the next 24-48 hours, you may check your results on the [facility] My Health Portal Make sure to take your Vitamins Vit. C Vit D and Zinc if you can take them Referrals: Jordy Haddad MD [Primary Care Provider] - As needed Forms: Work/School Release Medical Decision Making - Jean Pierre Inquiry Pt receiving controlled substance: No Jean Pierre was queried for this patient: No Vital Signs: 12/02/21 14:30 Temperature 98.6 F Temperature Source Oral Pulse Rate [Right Brachial] 76 Respiratory Rate 19 Blood Pressure [Right Arm] 103/72 L Blood Pressure Mean [Right Arm] 82 Blood Pressure Source [Right Arm] Automatic Cuff Blood Pressure Position [Right Arm] Sitting 02 Sat by Pulse Oximetry 100 Oxygen Delivery Method Room Air Orders (Tests/Meds): ORDERS Category Date Time Status Covid-19 Nasal PCR ([facility]) Routine Lab 12/02/21 14:26 Received [facility] [place] HPI - General Stated complaint: covid test Time Seen by Provider: 12/02/21 14:58 Mode of Arrival: Ambulatory Source of Information: Patient Limitations: No Limitations Description of Symptoms (Recalled from Triage Doc. by RN): COVID TEST D/T EXPOSURE HEENT Symptoms (Recalled from RN notes): No Resp Symptoms (Recalled from RN notes): No Skin Symptoms (Recalled from RN notes): No MS Symptoms (Recalled from RN notes): No Functional Status (Recalled from RN notes): WNL - History of Present Illness Provider Complaint: Patient states that child had a positive home test and she has been caring for him States that she isnt having any symptoms but wanted to get tested for COVID due to exposure - Related Data Home Medications Medication Instructions Recorded Confirmed gabapentin 600 mg tablet 600 mg PO BID 01/03/21 11/09/21 Buspirone HCl [Buspar 10mg 10 mg PO BID 01/31/21 11/09/21 tablet] Previous Rx's Medication Instructions Recorded albuterol sulfate 90 mcg/actuation 2 puff INHALATION Q6H PRN 30 Days 08/21/21 aerosol inhaler #6.7 g Azithromycin [Z-Jordan 250mg Tab*] 250 mg PO UD DOSE PK #6 tab 11/11/21 Benzonatate [Benzonatate 100mg 100 mg PO TIDP PRN #30 cap 11/11/21 cap] methylPREDNISolone [Medrol] 4 mg PO DIRECTED 6 Days #21 11/11/21 packet levothyroxine 75 mcg capsule 75 mcg PO DAILY #30 cap 11/19/21 Allergies Allergy/AdvReac Type Severity Reaction Status Date / Time latex [LATEX] Allergy Severe RASH, Verified 11/11/21 13:57 REDNESS Penicillins [PENICILLINS] Allergy Severe SWELLING, Verified 11/11/21 13:57 TROUBLE BREATHING - Worker's Comp Is this a Worker's Comp case?: No [facility] History - Hepatitis A Screen Attestation statement:: This patient has been screened for Hepatitis A risk factors. I have reviewed the patient's past medical history: Yes Medical History: Reports:: Anxiety, Asthma, Cancer, Depression, Gastroesophageal Reflux Disease(GERD), Valvular Heart Disease Denies:: Diabetes Mellitus Type 1, Diabetes Mellitus Type 2, MRSA, Seizures Other
[2021-12-02 15:00] VITALS: BP 103/72; PULSE 76; RESP 19; TEMP 37; O2SAT 100
== END 2021-12-02 15:05 | disposition home or self-care (01) ==
PROVIDERS: Emergency Provider Nurse Practitioner; PCP Emergency Medicine
DX: Z20.822 Contact with and (suspected) exposure to COVID-19 (principal); F17.210 Nicotine dependence, cigarettes, uncomplicated
CPT/HCPCS: 99212; C9803; G0463; U0003; U0005

== ENCOUNTER 2022-02-22 10:39 | Emergency (ER) | payer BC, SELFPAY ==
[2022-02-22 12:00] VITALS: BP 118/70; PULSE 67; RESP 18; TEMP 37.1; O2SAT 98; BMI 21.6
[2022-02-22 12:12] LABS: Adenovirus,PCR Not Detected (NotDetected); Bordetella Pertussis Not Detected (NotDetected); Chlamydophila Pneumoniae, PCR Not Detected (NotDetected); Coronavirus 229E Not Detected (NotDetected); Coronavirus NL63 Not Detected (NotDetected); Coronavirus OC43 Not Detected (NotDetected); Coronovirus HKU1,PCR Not Detected (NotDetected); Human Metapneumovirus Not Detected (NotDetected); Influenza A, PCR Not Detected (NotDetected); Influenza AH1, 2009 Not Detected (NotDetected); Influenza AH1, PCR Not Detected (NotDetected); Influenza AH3,PCR Not Detected (NotDetected); Influenza B, PCR Not Detected (NotDetected); Mycoplasma Pneumoniae, PCR Not Detected (NotDetected); Parainfluenza 1, PCR Not Detected (NotDetected); Parainfluenza 2, PCR Not Detected (NotDetected); Parainfluenza 3, PCR Not Detected (NotDetected); Parainfluenza 4, PCR Not Detected (NotDetected); Respiratory Syncytial Virus Not Detected (NotDetected); Rhinovirus/Enterovirus Not Detected (NotDetected)
--- NOTE | 2022-02-22 12:14 | EXP.UTC ---
Discharge Plan Disposition Patient Disposition: Home, Self-Care Condition: Good Prescriptions Prescriptions: New dextromethorphan polistirex [Delsym 12 hour] 30 mg/5 mL suspension,extended rel 12 hr 10 ml PO Q12H PRN (Reason: cough) Qty: 89 0RF No Action gabapentin 600 mg tablet 600 mg PO BID cyclobenzaprine 10 mg tablet 10 mg PO TID PRN (Reason: muscle spasm) Qty: 60 0RF prednisone 20 mg tablet 20 mg PO BID 5 Days Qty: 10 0RF benzonatate 100 mg capsule 100 mg PO TID PRN (Reason: cough) Qty: 30 0RF levothyroxine 75 mcg capsule 75 mcg PO DAILY Qty: 30 2RF albuterol sulfate [ProAir HFA] 90 mcg/actuation HFA aerosol inhaler See Rx Instructions .ROUTE .COMPLEX Qty: 8.5 0RF Dose Instruction: INHALE 2 PUFFS BY MOUTH EVERY SIX HOURS NEEDED FOR WHEEZING; ADMINISTER WITH SPACER Rx Instructions: INHALE 2 PUFFS BY MOUTH EVERY SIX HOURS NEEDED FOR WHEEZING; ADMINISTER WITH SPACER Referrals Follow up/Referrals: Jordy Haddad MD [Primary Care Provider] - See instructions Activity Restrictions/Add. Instructions Additional Instructions/Restrictions: Stop Tessalone perrles and try the delsym to see if that may help more with your cough *Monitor Temp, Over the counter Motrin or Tylenol as directed/as needed Tylenol every 4 hours and Motrin every 6 hours (as long as your family doctor has told you that you can take it) for fever or pain. and straight to ER if unable to lower temp less than 101.0 after medication given *Warm salt water gargles may help to soothe the throat *Throat Lozenges? *Warm fluids like tea with honey may help to soothe the throat? *Sleep elevated *Humidifier/Vaporizer Follow up IMMEDIATELY for new or worsening symptoms or no Noticeable improvement over the next 48-72 hours. 911 for difficulty breathing or swallowing You were tested for today for COVID19 your test result should be back in the next 24-48 hours, you may check your results on the [facility] Portal Clinical Impressions Clinical Impression: Cough, Exposure to COVID-19 virus Stand Alone Forms Stand Alone Forms: Work/School Release Instructions Patient Instructions: Cough Discharge ED Provider: Zeina Pastor [facility] [place] General Stated complaint: Covid tested Time Seen by Provider: 02/22/22 12:19 History of Present Illness Provider Complaint: Patient states that she took home COVID test and was positive States that she has been taking Tessalon perrles for her cough but they arent helping much States that she came in today to get tested for COVID and have cough medication changed Related Data Home Medications Medication Instructions Recorded Confirmed gabapentin 600 mg tablet 600 mg PO BID Pain 01/03/21 02/20/22 Previous Rx's Medication Instructions Recorded levothyroxine 75 mcg capsule 75 mcg PO DAILY #30 caps 11/19/21 albuterol sulfate 90 mcg/actuation See Rx Instructions .Route 02/15/22 aerosol inhaler (ProAir HFA) .COMPLEX #8.5 grams benzonatate 100 mg capsule 100 mg PO TID PRN cough #30 caps 02/20/22 cyclobenzaprine 10 mg tablet 10 mg PO TID PRN muscle spasm #60 02/20/22 tabs prednisone 20 mg tablet 20 mg PO BID 5 days #10 tabs 02/20/22 dextromethorphan polistirex 30 10 ml PO Q12H PRN cough #89 mL 02/22/22 mg/5 mL oral susp ext.release 12hr (Delsym 12 hour) Allergies Allergy/AdvReac Type Severity Reaction Status Date / Time latex [LATEX] Allergy Severe RASH, Verified 02/20/22 09:11 REDNESS Penicillins [PENICILLINS] Allergy Severe SWELLING, Verified 02/20/22 09:11 TROUBLE BREATHING [facility] Medical History (Updated 02/22/22 @ 12:34 by Zeina Pastor, CUSTOMER COUNTER REPRESENTATIVE) Asthma Cancer Chest pain COPD (chronic obstructive pulmonary disease) Dyspnea Migraine Tobacco dependence syndrome Surgical History (Updated 02/22/22 @ 12:15 by Trish Timmons RN) History of section History of cholecystectomy
[2022-02-22 12:35] VITALS: BP 118/70; PULSE 67; RESP 18; TEMP 37.1; O2SAT 98
[2022-02-23 06:47] LABS: Coronavirus 19, PCR Detected (NotDetected)
== END 2022-02-22 12:41 | disposition home or self-care (01) ==
PROVIDERS: Emergency Provider Nurse Practitioner; PCP Emergency Medicine
DX: U07.1 COVID-19 (principal)
CPT/HCPCS: 87581; 87632; 87798; 99212; C9803; G0463; U0003; U0005

== ENCOUNTER 2022-03-17 15:16 | Emergency (ER) | payer BC, SELFPAY ==
--- NOTE | 2022-03-17 16:55 | EXP.UTC ---
Discharge Plan Disposition Patient Disposition: Home, Self-Care Condition: Good Prescriptions Prescriptions: New azithromycin [Zithromax] 250 mg tablet 250 mg PO UD DOSE PK Qty: 6 0RF Rx Instructions: Take two (2) tablets today, then one (1) tablet days #2 thru #5 oseltamivir [Tamiflu] 75 mg capsule 75 mg PO BID Qty: 10 0RF methylprednisolone 4 mg Tablets,Dose Pack 4 mg PO DIRECTED Qty: 21 0RF No Action gabapentin 600 mg tablet 600 mg PO BID cyclobenzaprine 10 mg tablet 10 mg PO TID PRN (Reason: muscle spasm) Qty: 60 0RF prednisone 20 mg tablet 20 mg PO BID 5 Days Qty: 10 0RF benzonatate 100 mg capsule 100 mg PO TID PRN (Reason: cough) Qty: 30 0RF levothyroxine 75 mcg capsule 75 mcg PO DAILY Qty: 30 2RF albuterol sulfate [ProAir HFA] 90 mcg/actuation HFA aerosol inhaler See Rx Instructions .ROUTE .COMPLEX Qty: 8.5 0RF Dose Instruction: INHALE 2 PUFFS BY MOUTH EVERY SIX HOURS NEEDED FOR WHEEZING; ADMINISTER WITH SPACER Rx Instructions: INHALE 2 PUFFS BY MOUTH EVERY SIX HOURS NEEDED FOR WHEEZING; ADMINISTER WITH SPACER dextromethorphan polistirex [Delsym 12 hour] 30 mg/5 mL suspension,extended rel 12 hr 10 ml PO Q12H PRN (Reason: cough) Qty: 89 0RF Referrals Follow up/Referrals: Rian Rose APRN [Primary Care Provider] - See instructions Activity Restrictions/Add. Instructions Additional Instructions/Restrictions: Drink plenty of fluids. Take tylenol or ibuprofen for pain or fever. Take the medications as directed. Follow up with your regular doctor. GO TO THE ER FOR ANY WORSENING SYMPTOMS Clinical Impressions Clinical Impression: Acute viral syndrome, Exposure to influenza Stand Alone Forms Stand Alone Forms: Work/School Release Instructions Patient Instructions: DI for Influenza -- Adult Discharge ED Provider: Phil Iyer [facility] General Stated complaint: cough body aches Time Seen by Provider: 03/17/22 16:55 History of Present Illness Provider Complaint: Her mother states that for the past 2 days the has had sore throat, chills, body aches and low grade fever. Related Data Home Medications Medication Instructions Recorded Confirmed gabapentin 600 mg tablet 600 mg PO BID Pain 01/03/21 02/20/22 Previous Rx's Medication Instructions Recorded levothyroxine 75 mcg capsule 75 mcg PO DAILY #30 caps 11/19/21 albuterol sulfate 90 mcg/actuation See Rx Instructions .Route 02/15/22 aerosol inhaler (ProAir HFA) .COMPLEX #8.5 grams benzonatate 100 mg capsule 100 mg PO TID PRN cough #30 caps 02/20/22 cyclobenzaprine 10 mg tablet 10 mg PO TID PRN muscle spasm #60 02/20/22 tabs prednisone 20 mg tablet 20 mg PO BID 5 days #10 tabs 02/20/22 dextromethorphan polistirex 30 10 ml PO Q12H PRN cough #89 mL 02/22/22 mg/5 mL oral susp ext.release 12hr (Delsym 12 hour) azithromycin 250 mg tablet 250 mg PO UD DOSE PK #6 tabs 03/17/22 (Zithromax) methylprednisolone 4 mg tablets in 4 mg PO DIRECTED #21 tabs 03/17/22 a dose pack oseltamivir 75 mg capsule (Tamiflu) 75 mg PO BID #10 caps 03/17/22 Allergies Allergy/AdvReac Type Severity Reaction Status Date / Time latex [LATEX] Allergy Severe RASH, Verified 03/17/22 17:15 REDNESS Penicillins [PENICILLINS] Allergy Severe SWELLING, Verified 03/17/22 17:15 [facility] Disclaimer: The information contained in this section may have been updated after the patient was seen, as this information can be updated by other users. Medical History Asthma Cancer Chest pain COPD (chronic obstructive pulmonary disease) Dyspnea Migraine Tobacco dependence syndrome Surgical History History of section History of cholecystectomy History of tubal ligation Social History (Reviewed 03/17/22 @ 23:16 by Phil Wesley
[2022-03-17 17:12] VITALS: BP 114/75; PULSE 89; RESP 16; TEMP 36.8; O2SAT 97; BMI 23.3
[2022-03-17 17:48] LABS: Adenovirus,PCR Not Detected (NotDetected); Bordetella Pertussis Not Detected (NotDetected); Chlamydophila Pneumoniae, PCR Not Detected (NotDetected); Coronavirus 19, PCR Not Detected (NotDetected); Coronavirus 229E Not Detected (NotDetected); Coronavirus NL63 Not Detected (NotDetected); Coronavirus OC43 Not Detected (NotDetected); Coronovirus HKU1,PCR Not Detected (NotDetected); Human Metapneumovirus Not Detected (NotDetected); Influenza A, PCR Not Detected (NotDetected); Influenza AH1, 2009 Not Detected (NotDetected); Influenza AH1, PCR Not Detected (NotDetected); Influenza AH3,PCR Not Detected (NotDetected); Influenza B, PCR Not Detected (NotDetected); Mycoplasma Pneumoniae, PCR Not Detected (NotDetected); Parainfluenza 1, PCR Not Detected (NotDetected); Parainfluenza 2, PCR Not Detected (NotDetected); Parainfluenza 3, PCR Not Detected (NotDetected); Parainfluenza 4, PCR Not Detected (NotDetected); Respiratory Syncytial Virus Not Detected (NotDetected); Rhinovirus/Enterovirus Not Detected (NotDetected)
[2022-03-17 17:57] VITALS: BP 114/75; PULSE 89; RESP 16; TEMP 36.8
== END 2022-03-17 17:57 | disposition home or self-care (01) ==
PROVIDERS: Emergency Provider Nurse Practitioner Family; PCP Nurse Practitioner Family
DX: R05.9 Cough, unspecified (principal); R52 Pain, unspecified; B34.9 Viral infection, unspecified; Z20.828 Contact with and (suspected) exposure to other viral communicable diseases
CPT/HCPCS: 87581; 87632; 87798; 99212; C9803; G0463; U0003; U0005

== ENCOUNTER → 2022-05-14 12:00 | Outpatient (CLI) | payer BC, SELFPAY ==
[2022-05-14 16:59] LABS: Adenovirus,PCR Not Detected (NotDetected); Bordetella Pertussis Not Detected (NotDetected); Chlamydophila Pneumoniae, PCR Not Detected (NotDetected); Coronavirus 19, PCR Not Detected (NotDetected); Coronavirus 229E Not Detected (NotDetected); Coronavirus NL63 Not Detected (NotDetected); Coronavirus OC43 Not Detected (NotDetected); Human Metapneumovirus Not Detected (NotDetected); Influenza A, PCR Not Detected (NotDetected); Influenza AH1, 2009 Not Detected (NotDetected); Influenza AH1, PCR Not Detected (NotDetected); Influenza AH3,PCR Not Detected (NotDetected); Influenza B, PCR Not Detected (NotDetected); Mycoplasma Pneumoniae, PCR Not Detected (NotDetected); Parainfluenza 1, PCR Not Detected (NotDetected); Parainfluenza 2, PCR Not Detected (NotDetected); Parainfluenza 3, PCR Not Detected (NotDetected); Parainfluenza 4, PCR Not Detected (NotDetected); Respiratory Syncytial Virus Not Detected (NotDetected); Rhinovirus/Enterovirus Not Detected (NotDetected)
[2022-05-14 18:18] LABS: Coronovirus HKU1,PCR Detected (NotDetected)
== END ==
PROVIDERS: PCP Student in an Organized Health Care Education/Training Program; Visit Provider Student in an Organized Health Care Education/Training Program
DX: R68.89 Other general symptoms and signs (principal); U07.1 COVID-19
CPT/HCPCS: 87581; 87632; 87798; C9803; U0003; U0005

== ENCOUNTER → 2022-06-19 23:00 | Outpatient (CLI) | payer BC, SELFPAY | PROVIDERS: PCP Nurse Practitioner Family; Visit Provider Nurse Practitioner Family | DX: J02.9 Acute pharyngitis, unspecified (principal) | CPT/HCPCS: 87070 ==

== ENCOUNTER → 2022-08-02 10:48 | Outpatient (CLI) | payer BC, SELFPAY | PROVIDERS: PCP Nurse Practitioner Family; Visit Provider Family Medicine | DX: I38 Endocarditis, valve unspecified (principal) | CPT/HCPCS: 93306 ==

== ENCOUNTER 2022-10-09 21:24 | Emergency (ER) | payer BC, SELFPAY ==
[2022-10-09 21:25] VITALS: BP 114/67; PULSE 84; RESP 16; TEMP 36.5; O2SAT 98; BMI 22.4
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
[2022-10-09 22:30] VITALS: BP 97/58; PULSE 65; O2SAT 95
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
[2022-10-09 22:57] VITALS: BP 110/72; PULSE 67; RESP 16; TEMP 36.5; O2SAT 98
== END 2022-10-09 23:07 | disposition home or self-care (01) ==
PROVIDERS: Emergency Provider Emergency Medicine; PCP Family Medicine
DX: S83.91XA Sprain of unspecified site of right knee, initial encounter (principal); S80.11XA Contusion of right lower leg, initial encounter; W61.92XA Struck by other birds, initial encounter
CPT/HCPCS: 73562; 73590; 73630; 99283; 99284

== ENCOUNTER → 2022-10-19 12:49 | Outpatient (CLI) | payer BC, SELFPAY ==
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
== END ==
PROVIDERS: PCP Emergency Medicine; Visit Provider Student in an Organized Health Care Education/Training Program
DX: M25.571 Pain in right ankle and joints of right foot (principal)
CPT/HCPCS: 73610

== ENCOUNTER 2022-11-17 14:41 | Emergency (ER) | payer BC, SELFPAY ==
[2022-11-17 14:50] VITALS: BP 129/73; PULSE 74; RESP 18; TEMP 36.7; O2SAT 98; BMI 19.2
--- NOTE | 2022-11-17 15:07 | EXP.UTC ---
Discharge Plan Disposition Patient Disposition: Home, Self-Care Condition: Good Prescriptions Prescriptions: New valacyclovir 1 gram tablet 1,000 mg PO TID 7 Days Qty: 21 0RF cephalexin 500 mg capsule 500 mg PO QID 7 Days Qty: 28 0RF No Action gabapentin 600 mg tablet 600 mg PO BID prednisone 10 mg tablet 10 mg PO BID 5 Days Qty: 10 0RF ropinirole 2 mg tablet 2 mg PO DAILY Qty: 30 3RF fluticasone propionate [Flonase Allergy Relief] 50 mcg/actuation spray,suspension 1 spray intranasal DAILY Qty: 16 3RF Rx Instructions: administer into each nostril azithromycin [Zithromax Z-Jordan] 250 mg tablet See Rx Instructions PO .COMPLEX Qty: 6 0RF Rx Instructions: For 250 mg dose pack: take 500 mg today (day 1), then 250 mg for 4 days (days 2-5) PO albuterol sulfate [Ventolin HFA] 90 mcg/actuation HFA aerosol inhaler See Rx Instructions .ROUTE .COMPLEX Qty: 18 0RF Dose Instruction: INHALE 2 PUFFS BY MOUTH EVERY SIX HOURS NEEDED FOR WHEEZING; ADMINISTER WITH SPACER Rx Instructions: INHALE 2 PUFFS BY MOUTH EVERY SIX HOURS NEEDED FOR WHEEZING; ADMINISTER WITH SPACER levothyroxine 75 mcg tablet See Rx Instructions .ROUTE .COMPLEX Qty: 30 0RF Dose Instruction: TAKE 1 TABLET BY MOUTH ONCE DAILY FOR THYROID Rx Instructions: TAKE 1 TABLET BY MOUTH ONCE DAILY FOR THYROID Referrals Follow up/Referrals: Jordy Haddad MD [Primary Care Provider] - See instructions Activity Restrictions/Add. Instructions Additional Instructions/Restrictions: Take medication as prescribed DO NOT USE BANDAIDS Follow up with your Family Doctor if no improvement or any worsening of symptom Return if needed Straight to ER if any life threatening symptoms Clinical Impressions Clinical Impression: Shingles Qualifiers: Herpes zoster complications: without complications Qualified Code(s): B02.9 - Zoster without complications Instructions Patient Instructions: DI for Cellulitis -- Adult, DI for Shingles Discharge ED Provider: Zeina Pastor [facility] General Stated complaint: right wrist pain, no accident Mode of Arrival: Ambulatory Source of Information: Patient Limitations: No Limitations Time Seen by Provider: 11/17/22 15:08 Description of Symptoms (Recalled from Triage Doc. by RN): PATIENT C/O RASH TO RIGHT WRIST X 3 DAYS HEENT Symptoms (Recalled from RN notes): No Resp Symptoms (Recalled from RN notes): No Skin Symptoms (Recalled from RN notes): Yes MS Symptoms (Recalled from RN notes): No Functional Status (Recalled from RN notes): WNL History of Present Illness Provider Complaint: Patient states that she has been in the hospital with her child and been under alot of stress, States that she noticed she was starting to break out in a blister like rash on her right wrist that would burn and itch States that she has been putting a bandaid on it but thinks it may have got infected States that last night she wasnt able to sleep much due to it hurting so today she came in to get it checked Related Data Home Medications Medication Instructions Recorded Confirmed gabapentin 600 mg tablet 600 mg PO BID Pain 01/03/21 10/21/22 Previous Rx's Medication Instructions Recorded albuterol sulfate 90 mcg/actuation See Rx Instructions .Route 05/08/22 aerosol inhaler (Ventolin HFA) .COMPLEX #18 grams fluticasone propionate 50 1 spray intranasal DAILY #16 grams 07/23/22 mcg/actuation nasal spray,suspension (Flonase Allergy Relief) ropinirole 2 mg tablet 2 mg PO DAILY #30 tabs 07/23/22 azithromycin 250 mg tablet See Rx Instructions PO .COMPLEX #6 10/18/22 (Zithromax Z-Jordan) tabs prednisone 10 mg tablet 10 mg PO BID 5 days #10 tabs 10/21/22 levothyroxine 75 mcg tablet See Rx Instructions .Route 10/29/22 .COMPLEX #30 tabs cephalexin 500 mg capsule 500 mg PO QID 7 days #28 caps 11/17/22 valacyclovir 1 gram tablet 1,000 mg PO TID 7 days #21 tabs 11/17/22 A
[2022-11-17 15:25] VITALS: BP 129/73; PULSE 74; RESP 18; TEMP 36.7; O2SAT 98
== END 2022-11-17 15:29 | disposition home or self-care (01) ==
PROVIDERS: Emergency Provider Nurse Practitioner; PCP Emergency Medicine
DX: B02.9 Zoster without complications (principal); M25.531 Pain in right wrist; F17.210 Nicotine dependence, cigarettes, uncomplicated; J44.9 Chronic obstructive pulmonary disease, unspecified
CPT/HCPCS: 99212; 99214; G0463

== ENCOUNTER 2022-12-12 18:46 | Emergency (ER) | payer BC, SELFPAY ==
[2022-12-12 18:55] VITALS: BP 114/78; PULSE 70; RESP 20; TEMP 36.9; O2SAT 97; BMI 22.1
--- NOTE | 2022-12-12 19:01 | EXP.UTC ---
Discharge Plan Prescriptions Prescriptions: No Action gabapentin 600 mg tablet 600 mg PO BID prednisone 10 mg tablet 10 mg PO BID 5 Days Qty: 10 0RF ropinirole 2 mg tablet 2 mg PO DAILY Qty: 30 3RF fluticasone propionate [Flonase Allergy Relief] 50 mcg/actuation spray,suspension 1 spray intranasal DAILY Qty: 16 3RF Rx Instructions: administer into each nostril azithromycin [Zithromax Z-Jordan] 250 mg tablet See Rx Instructions PO .COMPLEX Qty: 6 0RF Rx Instructions: For 250 mg dose pack: take 500 mg today (day 1), then 250 mg for 4 days (days 2-5) PO albuterol sulfate [Ventolin HFA] 90 mcg/actuation HFA aerosol inhaler See Rx Instructions .ROUTE .COMPLEX Qty: 18 0RF Dose Instruction: INHALE 2 PUFFS BY MOUTH EVERY SIX HOURS NEEDED FOR WHEEZING; ADMINISTER WITH SPACER Rx Instructions: INHALE 2 PUFFS BY MOUTH EVERY SIX HOURS NEEDED FOR WHEEZING; ADMINISTER WITH SPACER levothyroxine 75 mcg tablet See Rx Instructions .ROUTE .COMPLEX Qty: 30 0RF Dose Instruction: TAKE 1 TABLET BY MOUTH ONCE DAILY FOR THYROID Rx Instructions: TAKE 1 TABLET BY MOUTH ONCE DAILY FOR THYROID valacyclovir 1 gram tablet 1,000 mg PO TID 7 Days Qty: 21 0RF cephalexin 500 mg capsule 500 mg PO QID 7 Days Qty: 28 0RF Referrals Follow up/Referrals: Jose Swenson MD [Primary Care Provider] - See instructions Discharge ED Provider: Phil Iyer [facility] General Stated complaint: SORE THROAT, DENTAL PAIN Time Seen by Provider: 12/12/22 19:01 History of Present Illness Provider Complaint: She c/o worsening right lower jaw dental pain for the past week. She has an appointment with her dentist, but it still 1 week away. Related Data Home Medications Medication Instructions Recorded Confirmed gabapentin 600 mg tablet 600 mg PO BID Pain 01/03/21 10/21/22 Previous Rx's Medication Instructions Recorded albuterol sulfate 90 mcg/actuation See Rx Instructions .Route 05/08/22 aerosol inhaler (Ventolin HFA) .COMPLEX #18 grams fluticasone propionate 50 1 spray intranasal DAILY #16 grams 07/23/22 mcg/actuation nasal spray,suspension (Flonase Allergy Relief) ropinirole 2 mg tablet 2 mg PO DAILY #30 tabs 07/23/22 azithromycin 250 mg tablet See Rx Instructions PO .COMPLEX #6 10/18/22 (Zithromax Z-Jordan) tabs prednisone 10 mg tablet 10 mg PO BID 5 days #10 tabs 10/21/22 levothyroxine 75 mcg tablet See Rx Instructions .Route 10/29/22 .COMPLEX #30 tabs cephalexin 500 mg capsule 500 mg PO QID 7 days #28 caps 11/17/22 valacyclovir 1 gram tablet 1,000 mg PO TID 7 days #21 tabs 11/17/22 Allergies Allergy/AdvReac Type Severity Reaction Status Date / Time latex [LATEX] Allergy Severe RASH, Verified 10/21/22 14:12 REDNESS Penicillins [PENICILLINS] Allergy Severe SWELLING, Verified 10/21/22 14:12 TROUBLE BREATHING PFSH [facility] Disclaimer: The information contained in this section may have been updated after the patient was seen, as this information can be updated by other users. Medical History Asthma Cancer Chest pain COPD (chronic obstructive pulmonary disease) Dyspnea Migraine Tobacco dependence syndrome Surgical History History of section History of cholecystectomy History of tubal ligation Social History Smoking Status: Current every day smoker tobacco type: cigarettes packs per day: 1 second hand exposure: No alcohol intake: current substance use type: denies use current occupational status: employed Travel in the last 8 weeks: None household members: family housing: house current occupation: [employer] current occupational exposures/hazards: No caffeine: Yes ROS Obtained: Yes All systems reviewed & no additional complaints except as do
[2022-12-12 19:09] VITALS: BP 114/78; PULSE 70; RESP 20; TEMP 36.9; O2SAT 97
== END 2022-12-12 19:59 | disposition home or self-care (01) ==
PROVIDERS: Emergency Provider Nurse Practitioner Family; PCP Family Medicine
DX: R68.84 Jaw pain (principal); F17.210 Nicotine dependence, cigarettes, uncomplicated; J44.9 Chronic obstructive pulmonary disease, unspecified
CPT/HCPCS: 96372; 99212; 99214; G0463; J0696

== ENCOUNTER 2023-06-06 20:23 | Outpatient (CLI) | payer BC, SELFPAY ==
[2023-06-06 17:44] LABS: Basophils % 0.2 % (0.1-2.0); Eosinophils # 0.1 K/mm3 (0.0-0.4); Eosinophils % 2.7 % (0.1-12.0); Hemoglobin 13.5 g/dL (12.2-16.2); Lymphocytes # 1.7 K/mm3 (0.7-4.5); Lymphocytes % 35.2 % (10-50); Mean Corpuscular HGB Conc 32.9 g/dL (31.8-35.4); Mean Corpuscular Hemoglobin 31.3 pg (27.0-31.2); Mean Platelet Volume 8.2 fl (7.4-10.4); Monocytes # 0.3 K/mm3 (0.1-1.0); Monocytes % 6.7 % (1.7-9.3); Neutrophils # 2.7 K/mm3 (1.8-7.8); Neutrophils % 55.2 % (37.0-80.0); Platelet Count 214 K/mm3 (142-424); Red Blood Count 4.32 M/mm3 (4.20-5.40); White Blood Count 4.9 K/mm3 (4.8-10.8)
[2023-06-06 18:26] LABS: Alanine Aminotransferase 45 U/L (12-78); Albumin Level 4.4 g/dl (3.5-5.0); Albumin/Globulin Ratio 1.4 (1.1-1.8); Alkaline Phosphatase 47 U/L (38-126); Anion Gap 11.2 mEq/L (5-15); Aspartate Amino Transferase 37 U/L (14-36); Bilirubin,Total 0.4 mg/dl (0.2-1.3); Blood Urea Nitrogen 11 mg/dl (7-17); Calcium 9.5 mg/dl (8.4-10.2); Carbon Dioxide 28 mmol/L (22.0-30.0); Chloride 104 mmol/L (98-107); Chol/HDL Ratio 5.4 (1-3.5); Cholesterol 207 mg/dl (140-200); Estimated Glomerular Filt Rate 79 ml/min (>60); GFR (African American) 95 ML/MIN (>60); Globulin 3.2 g/dL (1.3-3.2); Glucose 107 mg/dl (74-100); HDL Cholesterol 38 mg/dl (40-60); Potassium 4.2 mmoL/L (3.5-5.1); Sodium 139 mmol/L (136-145); Total Protein,Serum 7.6 g/dl (6.3-8.2); Triglycerides 232 mg/dl (30-150); VLDL Cholesterol 46 mg/dL (0-40)
[2023-06-06 18:37] LABS: Direct LDL Cholesterol 105.18 mg/dL (100-129)
[2023-06-06 19:25] LABS: Hemoglobin A1C 5.4 % (4.0-6.0)
[2023-06-06 19:48] LABS: 25-OH Vitamin D, Total 40.1 ng/mL (30-100)
== END 2023-06-06 23:59 ==
LOC: LAB.DROPOF 20:23
PROVIDERS: PCP Student in an Organized Health Care Education/Training Program; Visit Provider Student in an Organized Health Care Education/Training Program
DX: R53.83 Other fatigue (principal); R11.2 Nausea with vomiting, unspecified; R19.7 Diarrhea, unspecified; R51.9 Headache, unspecified; R05.9 Cough, unspecified; M79.10 Myalgia, unspecified site
CPT/HCPCS: 80053; 80061; 82306; 83036; 84443; 85025

== ENCOUNTER 2023-08-11 14:46 | Outpatient (CLI) | payer BC, SELFPAY ==
[2023-08-11 20:36] LABS: Erythrocyte Sedimentation Rate 19 mm/hr (0-20)
[2023-08-11 20:45] LABS: C-Reactive Protein < 0.3 mg/L (0-4)
[2023-08-11 20:57] LABS: Thyroid Stimulating Hormone 5.91 uIU/mL (0.465-4.68)
[2023-08-13 09:12] LABS: RA Latex Turbid. 11.8 IU/mL (<14.0)
[2023-08-13 13:43] LABS: Anti-Centromere B Antibodies <0.2 AI (0.0-0.9); Anti-DNA (DS) Ab Qn 1 IU/mL (0-9); Anti-Jo-1 <0.2 AI (0.0-0.9); Anti-Smith Antibody <0.2 AI (0.0-0.9); Antichromatin Antibodies <0.2 AI (0.0-0.9); Antiscleroderma-70 Antibodies <0.2 AI (0.0-0.9); RNP Antibodies 0.4 AI (0.0-0.9); Sjogren's Anti-SS-A <0.2 AI (0.0-0.9); Sjogren's Anti-SS-B <0.2 AI (0.0-0.9)
== END 2023-08-11 23:59 | disposition home or self-care (01) ==
LOC: LAB.DROPOF 08-13 14:47
PROVIDERS: PCP Student in an Organized Health Care Education/Training Program; Visit Provider Student in an Organized Health Care Education/Training Program
DX: G43.909 Migraine, unspecified, not intractable, without status migrainosus (principal); E03.9 Hypothyroidism, unspecified; M25.50 Pain in unspecified joint; M25.60 Stiffness of unspecified joint, not elsewhere classified; H92.03 Otalgia, bilateral; R09.89 Other specified symptoms and signs involving the circulatory and respiratory systems; R05.9 Cough, unspecified; R06.2 Wheezing; R06.02 Shortness of breath
CPT/HCPCS: 84443; 85651; 86140; 86225; 86235; 86431; 87635

== ENCOUNTER 2023-08-25 14:42 | Outpatient (CLI) | payer BC, SELFPAY ==
--- NOTE | 2023-08-25 14:46 | XR_ITS ---
FINAL REPORT CLINICAL HISTORY: bilateral hand pain COMPARISON: None FINDINGS: Two images of the right hand were obtained. There is no evidence of fracture or dislocation. The joint spaces are intact. There is no soft tissue abnormality identified. IMPRESSION: No acute bony abnormality. Reviewed, Interpreted and Dictated by Elver Roblero III, MD Transcribed by Katherine Loving Authenticated and [facility]
--- NOTE | 2023-08-25 14:46 | XR_ITS ---
FINAL REPORT CLINICAL HISTORY: bilteral hand pain COMPARISON: None FINDINGS: Two images of the left hand were obtained. There is no evidence of fracture or dislocation. The joint spaces are intact. There is no soft tissue abnormality identified. IMPRESSION: No acute bony abnormality. Reviewed, Interpreted and Dictated by Elver Roblero III, MD Transcribed by Katherine Loving Authenticated and . [facility]
== END 2023-08-25 23:59 | disposition home or self-care (01) ==
LOC: RAD 14:44
PROVIDERS: PCP Family Medicine; Visit Provider Student in an Organized Health Care Education/Training Program
DX: M25.541 Pain in joints of right hand (principal); M25.542 Pain in joints of left hand
CPT/HCPCS: 73120

== ENCOUNTER 2024-02-25 14:39 | Outpatient (CLI) | payer BC, SELFPAY ==
[2024-02-25 17:53] LABS: Adenovirus,PCR Not Detected (NotDetected); Bordetella Pertussis Not Detected (NotDetected); Chlamydophila Pneumoniae, PCR Not Detected (NotDetected); Coronavirus 19, PCR Not Detected (NotDetected); Coronavirus 229E Not Detected (NotDetected); Coronavirus NL63 Not Detected (NotDetected); Coronavirus OC43 Not Detected (NotDetected); Coronovirus HKU1,PCR Not Detected (NotDetected); Human Metapneumovirus Not Detected (NotDetected); Influenza A, PCR Not Detected (NotDetected); Influenza AH1, 2009 Not Detected (NotDetected); Influenza AH1, PCR Not Detected (NotDetected); Influenza AH3,PCR Not Detected (NotDetected); Influenza B, PCR Not Detected (NotDetected); Mycoplasma Pneumoniae, PCR Not Detected (NotDetected); Parainfluenza 1, PCR Not Detected (NotDetected); Parainfluenza 2, PCR Not Detected (NotDetected); Parainfluenza 3, PCR Not Detected (NotDetected); Parainfluenza 4, PCR Not Detected (NotDetected); Respiratory Syncytial Virus Not Detected (NotDetected); Rhinovirus/Enterovirus Not Detected (NotDetected)
== END 2024-02-25 23:59 | disposition home or self-care (01) ==
LOC: LAB.DROPOF 02-26 13:54
PROVIDERS: PCP Nurse Practitioner Family; Visit Provider Nurse Practitioner Family
DX: J02.9 Acute pharyngitis, unspecified (principal); J32.9 Chronic sinusitis, unspecified; Z72.0 Tobacco use
CPT/HCPCS: 87070; 87633

== ENCOUNTER 2024-03-30 14:42 | Outpatient (CLI) | payer BC, SELFPAY ==
[2024-03-30 18:06] LABS: Adenovirus,PCR Not Detected (NotDetected); Bordetella Pertussis Not Detected (NotDetected); Chlamydophila Pneumoniae, PCR Not Detected (NotDetected); Coronavirus 19, PCR Not Detected (NotDetected); Coronavirus 229E Not Detected (NotDetected); Coronavirus NL63 Not Detected (NotDetected); Coronavirus OC43 Not Detected (NotDetected); Coronovirus HKU1,PCR Not Detected (NotDetected); Human Metapneumovirus Not Detected (NotDetected); Influenza A, PCR Not Detected (NotDetected); Influenza AH1, 2009 Not Detected (NotDetected); Influenza AH1, PCR Not Detected (NotDetected); Influenza AH3,PCR Not Detected (NotDetected); Influenza B, PCR Not Detected (NotDetected); Mycoplasma Pneumoniae, PCR Not Detected (NotDetected); Parainfluenza 1, PCR Not Detected (NotDetected); Parainfluenza 2, PCR Not Detected (NotDetected); Parainfluenza 3, PCR Not Detected (NotDetected); Parainfluenza 4, PCR Not Detected (NotDetected); Respiratory Syncytial Virus Not Detected (NotDetected); Rhinovirus/Enterovirus Not Detected (NotDetected)
== END 2024-03-30 23:59 | disposition home or self-care (01) ==
LOC: LAB.DROPOF 03-31 11:04
PROVIDERS: PCP Student in an Organized Health Care Education/Training Program; Visit Provider Student in an Organized Health Care Education/Training Program
DX: J98.8 Other specified respiratory disorders (principal); B97.89 Other viral agents as the cause of diseases classified elsewhere; Z72.0 Tobacco use
CPT/HCPCS: 87633

== ENCOUNTER 2024-04-06 11:48 | Outpatient (CLI) | payer BC, SELFPAY ==
[2024-04-06 12:47] LABS: Coronavirus 19, PCR Not Detected (NotDetected); Human Rhinovirus Not Detected (NotDetected); Influenza A, PCR Not Detected (NotDetected); Influenza B, PCR Not Detected (NotDetected); Respiratory Syncytial Virus Not Detected (NotDetected)
== END 2024-04-06 23:59 | disposition home or self-care (01) ==
LOC: LAB.DROPOF 04-08 10:44
PROVIDERS: PCP Student in an Organized Health Care Education/Training Program; Visit Provider Student in an Organized Health Care Education/Training Program
DX: R07.0 Pain in throat (principal)
CPT/HCPCS: 87631

== ENCOUNTER 2024-06-07 15:45 | Outpatient (CLI) | payer MEDICAID, SELFPAY ==
[2024-06-07 16:50] LABS: Hemoglobin A1C 5.1 % (4.0-6.0)
[2024-06-07 17:38] LABS: Alanine Aminotransferase 42 U/L (12-78); Albumin Level 4.6 g/dl (3.5-5.0); Albumin/Globulin Ratio 1.6 (1.1-1.8); Alkaline Phosphatase 45 U/L (38-126); Aspartate Amino Transferase 35 U/L (14-36); Bilirubin,Total 0.3 mg/dl (0.2-1.3); Blood Urea Nitrogen 18 mg/dl (7-17); Calcium 9.8 mg/dl (8.4-10.2); Chloride 105 mmol/L (98-107); Chol/HDL Ratio 4.7 (1-3.5); Cholesterol 180 mg/dl (140-200); Estimated Glomerular Filt Rate 91 ml/min (>60); GFR (African American) 111 ML/MIN (>60); Globulin 2.9 g/dL (1.3-3.2); Glucose 91 mg/dl (74-100); HDL Cholesterol 38 mg/dl (40-60); Sodium 134 mmol/L (136-145); Total Protein,Serum 7.5 g/dl (6.3-8.2); Triglycerides 200 mg/dl (30-150); VLDL Cholesterol 40 mg/dL (0-40)
[2024-06-07 17:46] LABS: Potassium 4.2 mmoL/L (3.5-5.1)
[2024-06-07 17:53] LABS: T4 (Thyroxine) 8.4 ug/dl (5.53-11.0)
[2024-06-07 18:25] LABS: Hepatitis C Ab Qual. W/ RFX REACTIVE (Negative)
[2024-06-07 18:41] LABS: Anion Gap 9.2 mEq/L (5-15); Carbon Dioxide 24 mmol/L (22.0-30.0)
[2024-06-07 19:31] LABS: HIV Combo NEGATIVE (Negative)
== END 2024-06-07 23:59 | disposition home or self-care (01) ==
PROVIDERS: PCP Family Medicine; Visit Provider Family Medicine
DX: E03.9 Hypothyroidism, unspecified (principal); Z86.79 Personal history of other diseases of the circulatory system
CPT/HCPCS: 36415; 80053; 80061; 83036; 84436; 84443; 86803; 87389; 87522

== ENCOUNTER 2024-06-16 14:49 | Outpatient (CLI) | payer MEDICAID, SELFPAY ==
[2024-06-16 15:35] LABS: Basophils % 0.6 % (0.1-2.0); Eosinophils # 0.1 K/mm3 (0.0-0.4); Eosinophils % 2.4 % (0.1-12.0); Hematocrit 35.9 % (37.0-47.0); Hemoglobin 12.4 g/dL (12.2-16.2); Lymphocytes # 1.3 K/mm3 (0.7-4.5); Lymphocytes % 28.6 % (10-50); Mean Corpuscular HGB Conc 34.5 g/dL (31.8-35.4); Mean Corpuscular Hemoglobin 30.1 pg (27.0-31.2); Mean Corpuscular Volume 87.1 fl (81-99); Mean Platelet Volume 9.2 fl (7.4-10.4); Monocytes # 0.3 K/mm3 (0.1-1.0); Monocytes % 6.5 % (1.7-9.3); Neutrophils # 2.9 K/mm3 (1.8-7.8); Neutrophils % 61.9 % (37.0-80.0); Platelet Count 229 K/mm3 (142-424); Red Blood Count 4.12 M/mm3 (4.20-5.40); Red Cell Distribution Width 12.2 % (11.5-17.5); White Blood Count 4.6 K/mm3 (4.8-10.8)
[2024-06-16 15:51] LABS: Prothrombin Time 11.2 seconds (10.1-12.5)
[2024-06-17 09:14] LABS: Hepatitis B Surface Antigen Negative (Negative)
[2024-06-17 12:12] LABS: Hep A Ab, IgM Negative (Negative); Hep A Ab, Total Positive (Negative); Hep B Core Ab, Total Negative (Negative); Hep B Surface Ab, Qual Non Reactive (.)
[2024-06-20 22:30] LABS: Hepatitis C Genotype 3 (.)
[2024-06-22 11:12] LABS: ALT (SGPT) P5P 38 IU/L (0-40); Alpha 2-Macroglobulins, Qn 245 mg/dL (110-276); Apolipoprotein A-1 131 mg/dL (116-209); Bilirubin, Total <0.1 mg/dL (0.0-1.2); GGT 16 IU/L (0-60); Haptoglobin 65 mg/dL (42-296); Necroinflammat Activity Grade A0-No activity (.); Necroinflammat Activity Score 0.16 (0.00-0.17)
== END 2024-06-16 23:59 | disposition home or self-care (01) ==
LOC: LAB 14:50
PROVIDERS: PCP Family Medicine; Visit Provider Internal Medicine
DX: B19.20 Unspecified viral hepatitis C without hepatic coma (principal)
CPT/HCPCS: 36415; 81517; 82172; 82247; 82977; 83010; 83883; 84460; 85025; 85610; 86704; 86706; 86708; 86709; 87340; 87902

== ENCOUNTER 2024-08-18 14:50 | Outpatient (CLI) | payer MEDICAID, SELFPAY ==
[2024-08-18 15:34] LABS: Coronavirus 19, PCR Not Detected (NotDetected); Influenza A, PCR Not Detected (NotDetected); Influenza B, PCR Not Detected (NotDetected); Respiratory Syncytial Virus Not Detected (NotDetected)
[2024-08-18 18:11] LABS: Human Rhinovirus Detected (NotDetected)
== END 2024-08-18 23:59 | disposition home or self-care (01) ==
LOC: LAB.DROPOF 08-19 11:31
PROVIDERS: PCP Nurse Practitioner; Visit Provider Nurse Practitioner
DX: R50.9 Fever, unspecified (principal)
CPT/HCPCS: 87631